=== PATIENT | female | born 1970 | race Caucasian/White ===

== ENCOUNTER 2016-11-18 15:19 | Emergency (ER) | payer OTHER ==
[~2016-11-18] VITALS: Ht 170.2 cm; Wt 71.4 kg
[2016-11-18 15:31] VITALS: BP 117/85; PULSE 85; RESP 15; O2SAT 93
[2016-11-18] MEDS ORDERED: SERT50TA9 PO (16:44)
[2016-11-18 17:36] LABS: BASOPHILS % (AUTO) 0.3 % (0-3); EOSINOPHILS % (AUTO) 3.1 % (0-5); MONOCYTES % (AUTO) 8.7 % (4-12); Mean Corpuscular Hemoglobin 34.1 pg (27.0-35.0); NEUTROPHILS % (AUTO) 37.2 % (40-74); Platelet Count 200 bil/L (150-400)
[2016-11-18 17:58] LABS: Magnesium 2.2 mg/dL (1.6-2.6)
--- NOTE | 2016-11-18 18:19 | ED.REPORT ---
HPI-Abd Pain F 40 and Over Date of Service Nov 18, 2016 ED Provider: Ken Monge DO Nursing Notes Stated Complaint: WEAKNESS Chief Complaint: General Complaint Allergies: Coded Allergies: naproxen (Verified Allergy, Intermediate, HEAD ACHES, THROWING UP, 11/18/16 ) Scheduled Sertraline HCl (Sertraline) 50 Mg Tablet Unknown Dose PO DAILY General Time Seen by MD: 17:52 Physical Exam Vital Signs Vital Signs (First) Date Time Temp Pulse Resp B/P Pulse Ox O2 Delivery O2 Flow Rate FiO2 11/18/16 15:31 36.2 85 15 117/85 93 Room Air Interpretation & Diagnostics Lab Results Interpretation Result Diagram: 11/18/16 1727 11/18/16 1727 Test 11/18/16 17:27 11/18/16 18:21 11/18/16 18:35 11/18/16 18:44 White Blood Count 6.7th/mm3 (3.8-10.1) Red Blood Count 4.92mil/mm3 (3.90-5.20) Hemoglobin 16.8g/dL (12.0-15.6) Hematocrit 49.2% (35.0-46.0) Mean Corpuscular Volume 100.0fL (81-100) Mean Corpuscular Hemoglobin 34.1pg (27.0-35.0) Mean Corpuscular Hemoglobin Concent 34.1% (32.0-37.0) Red Cell Distribution Width 12.9% (12.3-15.4) Platelet Count 200bil/L (150-400) Neutrophils (%) (Auto) 37.2% (40-74) Lymphocytes (%) (Auto) 50.6% (14-46) Monocytes (%) (Auto) 8.7% (4-12) Eosinophils (%) (Auto) 3.1% (0-5) Basophils (%) (Auto) 0.3% (0-3) Prothrombin Time 10.4sec (8.1-12.5) Prothromb Time International Ratio 0.97ratio Sodium Level 140mEq/L (134-144) Potassium Level 4.0mEq/L (3.5-5.2) Chloride Level 100mEq/L (97-108) Carbon Dioxide Level 21mmol/L (18-29) Blood Urea Nitrogen 7mg/dL (6-24) Creatinine 0.76mg/dL (0.57-1.00) Estimat Glomerular Filtration Rate 117mL/min (>59) Glucose Level 98mg/dL (60-99) Calcium Level 9.0mg/dL (8.5-10.1) Magnesium Level 2.2mg/dL (1.6-2.6) Total Bilirubin 0.7mg/dL (0.0-1.2) Aspartate Amino Transf (AST/SGOT) 170U/L (0-50) Alanine Aminotransferase (ALT/SGPT) 130U/L (0-32) Alkaline Phosphatase 100U/L (25-150) Troponin T < 0.010ug/L (0.0-0.011) Total Protein 7.6g/dL (6.4-8.4) Albumin 4.5g/dL (3.4-5.0) Lipase 19U/L (13-60) Thyroid Stimulating Hormone (TSH) 2.740uIU/mL (0.450-4.500) Hold Omer Top Tube Received (Received) Hold Urine Received (Received) Urine Color Yellow (YELLOW) Urine Appearance Hazy (CLEAR,HAZY) Urine pH 6.0 (5.0-8.0) Urine Specific [place] 1.020 (1.003-1.035) Urine Protein Negativemg/dL (NEG,TRACE) Urine Glucose (UA) Negativemg/dL (NEGATIVE) Urine Ketones Tracemg/dL (NEGATIVE) Urine Occult Blood Small (NEGATIVE) Urine Nitrite Positive (NEGATIVE) Urine Bilirubin Negative (NEGATIVE) Urine Urobilinogen Normalmg/dL (NORMAL) Urine Leukocyte Esterase Trace (NEGATIVE) Urine RBC 0-2/hpf (0-2) Urine WBC 6-10/hpf (0-5) Urine Epithelial Cells Few/hpf (NONE-MOD) Urine Crystals None seen (NONE SEEN) Urine Bacteria Many/hpf (NONE-FEW) Urine Hyaline Casts None/lpf (NONE) Urine Granular Casts None seen (NONE SEEN) Urine Waxy Casts None seen (NONE SEEN) Urine Red Blood Cell Casts None seen (NONE SEEN) Urine White Blood Cell Casts None seen (NONE SEEN) Urine Mucus None seen (None Seen) Urine Trichomonas None seen (NONE SEEN) Urine Yeast None (NONE SEEN) Urinalysis Comment None Urine Culture Reflexed Indicated Ammonia 45ug/dL (18-53) Hepatitis A IgM Antibody Negative (Negative) Hepatitis B Surface Antigen Negative (Negative) Hepatitis B Core IgM Antibody Negative (Negative) Hepatitis C Antibody <0.1s/co ratio (0.0-0.9) Hepatitis C Comment Comment (.) Discharge & Departure Referrals: NOPCP (PCP) Ken Monge DO Nov 18, 2016 18:19
--- NOTE | 2016-11-18 18:20 | ED.REPORT ---
HPI-General Illness Date of Service Nov 18, 2016 ED Provider: Ken Monge DO A 46 year old with a history of daily alcohol use and a family history of alcoholism and cirrhosis presents to the ED complaining of weakness. This is accompanied by fatigue, nausea, vomiting, and frequent diarrhea. The pt has been experiencing the nausea, vomiting, and diarrhea for two months to the point that she has been eating significantly less. The weakness and fatigue, however, began within the last several days. The pt has an appointment arranged with her PCP on 12/02/2016 to address her symptoms. Nursing Notes Stated Complaint: WEAKNESS Chief Complaint: General Complaint Nursing Notes Reviewed: Yes Allergies: Coded Allergies: naproxen (Verified Allergy, Intermediate, HEAD ACHES, THROWING UP, 11/18/16 ) Scheduled Sertraline HCl (Sertraline) 50 Mg Tablet Unknown Dose PO DAILY General Time Seen by MD: 17:52 Chief Complaint Weakness Hx Obtained From: Patient Arrived By: Walk-in Sudden in Onset?: No Onset Occurred: More than a week ago... Symptom Duration: Since onset Recent Healthcare: No recent doctor visit, No recent hospitalization Similar Sx Previous: No Past Medical History Past Medical History none reported Past Surgical History laparoscopy Smoking History Never Smoker Social History Alcohol Use: 1-3 per day Other Social History: Good social support, Ambulatory Status Independent Review of Systems Full Review of Systems Constitutional: Reports: Fatigue, Weakness - generalized Respiratory: Denies: Non-productive cough, Shortness of breath Cardiovascular: Denies: Chest pain GI: Reports: Diarrhea, Nausea, Vomiting Musculoskeletal: Denies: Back pain Skin: Denies Rash Complete sys rev & neg: except as marked. Physical Exam Vital Signs Vital Signs Date Time Temp Pulse Resp B/P Pulse Ox O2 Delivery O2 Flow Rate FiO2 11/18/16 21:50 36.7 88 20 115/86 97 Room Air 11/18/16 19:45 86 16 127/90 97 Room Air 11/18/16 15:31 36.2 85 15 117/85 93 Room Air Initial VS: Reviewed General/Constitutional: Awake, Alert Head / Eyes: Atraumatic, Normocephalic, PERRL, EOMI ENT: Atraumatic, Airway patent, Mucous membranes moist Neck: Atraumatic, Supple, Full range of motion Respiratory / Chest: Atraumatic, Breath sounds NL, Breath sounds = bilat, No respiratory distress Cardiovascular: Heart rate NL, Regular rhythm, Heart sounds NL Abdomen: Atraumatic, Soft, Non-tender Back: Atraumatic, Full range of motion Upper Extremities Upper Extremity / MS: Atraumatic, Full range of motion Lower Extremity / Pelvis / MS: Atraumatic, Full range of motion Skin: Atraumatic, Color NL, No rash, Warm, Dry not jaundiced Neurologic: Oriented X3, Speech NL, No motor deficits, No sensory deficits Psychiatric: Affect NL, Mood NL Interpretation & Diagnostics Interpretation & Diagnostics: Abdomen US: IMPRESSION: Coarse echogenic liver suggesting diffuse hepatocellular disease/fatty infiltration. Please correlate with LFTs. Pancreas not sonographically visualized therefore recommend clinical correlation and necessary with pancreatic enzymes. Normal appearance of the gallbladder. Dictated by: Randal Cotter M.D. on 11/18/2016 at 20:07 Approved by: Randal Cotter M.D. on 11/18/2016 at 20:09 Lab Results Interpretation Result Diagram: 11/18/16 1727 11/18/16 1727 Test 11/18/16 17:27 11/18/16 18:21 11/18/16 18:35 11/18/16 18:44 White Blood Count 6.7th/mm3 (3.8-10.1) Red Blood Count 4.92mil/mm3 (3.90-5.20) Hemoglobin 16.8g/dL (12.0-15.6) Hematocrit 49.2% (35.0-46.0) Mean Corpuscular Volume 100.0fL (81-100) Mean Corpuscular Hemoglobin 34.1pg (27.0-35.0) Mean Corpuscular Hemoglobin Concent 34.1% (32.0-37.0) Red Cell Distribution Width 12.9% (12.3-15.4) Platelet Count 200bil/L (150-400) Neutrophils (%) (Auto) 37.2% (40-74) Lymphocytes (%) (Auto) 50.6% (14-46) Monocytes (%) (Auto) 8.7% (4-12) Eosinophils (%) (Auto) 3.1% (0-5) Basophils (%) (Auto) 0.3% (0-3) Prothrombin Time 10.4sec (8.1-12.5) Prothromb Time International Ratio 0.97ratio Sodium Level 140mEq/L (134-144) Potassium Level 4.0mEq/L (3.5-5.2) Chloride Level 100mEq/L (97-108) Carbon Dioxide Level 21mmol/L (18-29) Blood Urea Nitrogen 7mg/dL (6-24) Creatinine 0.76mg/dL (0.57-1.00) Estimat Glomerular Filtration Rate 117mL/min (>59) Glucose Level 98mg/dL (60-99) Calcium Level 9.0mg/dL (8.5-10.1) Magnesium Level 2.2mg/dL (1.6-2.6) Total Bilirubin 0.7mg/dL (0.0-1.2) Aspartate Amino Transf (AST/SGOT) 170U/L (0-50) Alanine Aminotransferase (ALT/SGPT) 130U/L (0-32) Alkaline Phosphatase 100U/L (25-150) Troponin T < 0.010ug/L (0.0-0.011) Total Protein 7.6g/dL (6.4-8.4) Albumin 4.5g/dL (3.4-5.0) Lipase 19U/L (13-60) Thyroid Stimulating Hormone (TSH) 2.740uIU/mL (0.450-4.500) Hold Omer Top Tube Received (Received) Hold Urine Received (Received) Urine Color Yellow (YELLOW) Urine Appearance Hazy (CLEAR,HAZY) Urine pH 6.0 (5.0-8.0) Urine Specific [place] 1.020 (1.003-1.035) Urine Protein Negativemg/dL (NEG,TRACE) Urine Glucose (UA) Negativemg/dL (NEGATIVE) Urine Ketones Tracemg/dL (NEGATIVE) Urine Occult Blood Small (NEGATIVE) Urine Nitrite Positive (NEGATIVE) Urine Bilirubin Negative (NEGATIVE) Urine Urobilinogen Normalmg/dL (NORMAL) Urine Leukocyte Esterase Trace (NEGATIVE) Urine RBC 0-2/hpf (0-2) Urine WBC 6-10/hpf (0-5) Urine Epithelial Cells Few/hpf (NONE-MOD) Urine Crystals None seen (NONE SEEN) Urine Bacteria Many/hpf (NONE-FEW) Urine Hyaline Casts None/lpf (NONE) Urine Granular Casts None seen (NONE SEEN) Urine Waxy Casts None seen (NONE SEEN) Urine Red Blood Cell Casts None seen (NONE SEEN) Urine White Blood Cell Casts None seen (NONE SEEN) Urine Mucus None seen (None Seen) Urine Trichomonas None seen (NONE SEEN) Urine Yeast None (NONE SEEN) Urinalysis Comment None Urine Culture Reflexed Indicated Ammonia 45ug/dL (18-53) Hepatitis C Comment . Pulse Oximetry Interpretation Pulse Oximetry Interpretation: 93% on room air ECG Interpretation ECG Interpretation: normal sinus rhythm with a rate of 80 Time: 18:45 Interpreted by: ED physician X-Ray Chest Interpretation Chest Xray Interpretation: IMPRESSION: No acute disease Dictated by: Randal Cotter M.D. on 11/18/2016 at 18:50 Approved by: Randal Cotter M.D. on 11/18/2016 at 18:51 Interpretation / Wet Read by: Interpret - Radiologist Re-Eval/Medical Decision Time of Eval: 20:23 Patient Status: Condition improved Re-Evaluation/Progress Note: Pt rechecked and informed of lab results and diagnosis. The plan for discharge is discussed. The pt understands and agrees with the plan. All questions are addressed at this time. Counseled Regarding: Diagnosis, Lab results, Need for follow-up, When/why to return to ED Discharge & Departure Primary Impression: Urinary tract infection Urinary tract infection type: site unspecified Hematuria presence: without hematuria Qualified Code: N39.0 - Urinary tract infection, site not specified Disposition: Home Discharge Condition All VS Reviewed: Yes Condition: Stable Patient Instructions: Urinary Tract Infection in Women (ED) Additional Instructions: Take Bactrim twice daily for 7 days. Take Zofran every 8 hours as needed for nausea. Drink plenty of liquids. Your chest x-ray was normal. Your liver ultrasound showed fatty infiltrates and your liver enzymes were elevated. Reduce the amount of alcohol in your diet. We have sent out blood tests for hepatitis. Follow up on these blood tests [facility]. Return to the emergency department if you develop any new or worsening symptoms. Referrals: [facility] Scribe Attestation Portions of this note were transcribed by Marc Sommers. I, Dr. Monge personally performed the history, physical exam and medical decision-making; I reviewed and confirmed the accuracy of the information in the transcribed note. Signed by: Mahesh George, 11/18/2016 and 2300. copies to: [facility] Ken Monge DO Nov 18, 2016 18:20 MARC SOMMERS Nov 18, 2016 18:29
[2016-11-18] MEDS ORDERED: 0.9% Sodium Chloride 1,000 ML IV SCH (18:30)
--- NOTE | 2016-11-18 18:52 | DRSVH ---
PROCEDURE: X-RAY CHEST, TWO VIEWS ([id number]) INDICATIONS: weak and cough TECHNIQUE: 2 views of the chest were acquired. COMPARISON: None. FINDINGS: Surgical changes and devices: None. Lungs and pleura: No pleural effusions or pneumothorax. Lungs are clear. Mediastinum: Mediastinal contours are normal. Heart size is normal. Bones and chest wall: No suspicious bony abnormalities. Soft tissues appear unremarkable. IMPRESSION: No acute disease Dictated by: Randal Cotter M.D. on 11/18/2016 at 18:50 Approved by: Randal Cotter M.D. on 11/18/2016 at 18:51
[2016-11-18 18:53] LABS: APPEARANCE,URINE HAZY (CLEAR,HAZY); COLOR,URINE YELLOW (YELLOW)
[2016-11-18 18:54] LABS: OCCULT BLOOD,URINE SMALL (NEGATIVE); UROBILINOGEN,URINE NORMAL (NORMAL)
[2016-11-18] MEDS ORDERED: cefTRIAXone Inj 2,000 MG in Dextrose 5% Minibag Plus 50 ML IV ONE (19:05)
[2016-11-18 19:20] LABS: INR 0.97 ratio
[2016-11-18 19:30] LABS: TROPONIN T < 0.010 ug/L (0.0-0.011)
[2016-11-18 19:45] VITALS: BP 127/90; PULSE 86; RESP 16; O2SAT 97
--- NOTE | 2016-11-18 20:10 | DRSVH ---
PROCEDURE: US ABDOMEN ([id number]) INDICATIONS: post prandial abdominal pain, hepatitis TECHNIQUE: Real-time scanning was performed of the abdominal and retroperitoneal organs, with image documentatio n. COMPARISON: None. FINDINGS: Liver: Coarsely echogenic. No focal hepatic lesion. Gallbladder: Unremarkable. No sonographic Hicks sign. Biliary ducts: Intrahepatic bile ducts are non-dilated. Extrahepatic bile duct caliber measures 2-3 mm. Normal is 6-7 mm or less in diameter, or 10 mm or less post-cholecystectomy. Pancreas: Not well-visualized Spleen: Spleen is normal in size and homogeneous in echotexture. Kidneys: Kidneys are normal in size and echotexture. Right kidney measures 9.1 cm long; left kidney measures 9.9 cm long. No hydronephrosis or nephrolithiasis. No solid masses. Aorta: Visualized aorta is normal in caliber at less than 3 cm. Iliacs: Proximal common iliac arteries are normal in caliber at less than 2.5 cm. IVC: Intrahepatic inferior vena cava is patent. Miscellaneous: No free abdominal fluid. IMPRESSION: Coarse echogenic liver suggesting diffuse hepatocellular disease/fatty infiltration. Please correlate with LFTs. Pancreas not sonographically visualized therefore recommend clinical correlation and necessary with p ancreatic enzymes. Normal appearance of the gallbladder. Dictated by: Randal Cotter M.D. on 11/18/2016 at 20:07 Approved by: Randal Cotter M.D. on 11/18/2016 at 20:09
[2016-11-18] MEDS ORDERED: cefTRIAXone Inj 1,000 MG, Lidocaine PF 1% Inj 2.1 ML in Syringe 0 EACH IM ONE (20:30)
[2016-11-18 21:50] VITALS: BP 115/86; PULSE 88; RESP 20; O2SAT 97
[2016-11-19 08:09] LABS: Hepatitis A Antibody IgM Negative (Negative); Hepatitis B Core Antibody IgM Negative (Negative)
== END 2016-11-18 21:53 | disposition home or self-care (01) ==
LOC: SED 15:19
DX: N39.0 Urinary tract infection, site not specified (principal); B96.20 Unspecified Escherichia coli [E. coli] as the cause of diseases classified elsewhere; R94.5 Abnormal results of liver function studies; Z88.6 Allergy status to analgesic agent
CPT/HCPCS: 36415; 71020; 76700; 80053; 81000; 81025; 82140; 83690; 83735; 84443; 84484; 85025; 85610; 86705; 86709; 87077; 87086; 87088; 87186; 87340; 87341; 93005; 96372; 99285; G0472; J0696